=== PATIENT | male | born 1950 | race Caucasian/White ===

== ENCOUNTER 2019-11-22 19:52 | Emergency (ER) | payer MEDICARE, OTHER ==
--- NOTE | 2019-11-22 20:06 | EDM.PDOC ---
ED HPI GENERAL MEDICAL PROBLEM - General Chief Complaint: General Stated Complaint: FELL AND INJURED RIBS Time Seen by Provider: 11/22/19 20:06 - History of Present Illness INITIAL COMMENTS - FREE TEXT/NARRATIVE: 69-year-old male presents the emergency room with rib pain. 3 days ago the patient fell he tripped in a parking lot over a cement parking bumper and landed on the curb with his right chest he turned to avoid hitting his head the patient fell a little over 3 weeks ago bumped his head had a small bleed he is on a novel anticoagulant because of A. fib. He was admitted to the ICU overnight and they watch the bleed it did not get better they told him to stay off the blood thinner and he has an appointment when he gets back home this next week. The patient states he is in A. fib approximately 20% of the time. Treatments [employer]: Reports: Other (see below) Other Treatments [employer]: norco Right Chest Pain Score (Numeric/FACES): 8 - Related Data Allergies Allergy/AdvReac Type Severity Reaction Status Date / Time Penicillins Allergy Severe Rash Verified 11/22/19 20:08 Home Meds: Home Meds Amiodarone [Cordarone] 200 mg PO DAILY 11/22/19 [History] DULoxetine [Cymbalta] 60 mg PO DAILY 11/22/19 [History] Enalapril Maleate [Vasotec] 10 mg PO DAILY 11/22/19 [History] Gabapentin [Neurontin] 800 mg PO TID 11/22/19 [History] Hydrocodone/Acetaminophen [Lena 10-325 Tablet] 10 - 325 mg PO ASDIRECTED 11/22/19 [History] Rivaroxaban [Xarelto] 2.5 mg PO DAILY 11/22/19 [History] atorvaSTATin [Lipitor] 20 mg PO DAILY 11/22/19 [History] metFORMIN [Glucophage] 850 mg PO BID 11/22/19 [History] ED ROS GENERAL - Review of Systems Review Of Systems: See Below Constitutional: Reports: No Symptoms HEENT: Reports: No Symptoms Respiratory: Reports: Pleuritic Chest Pain. Denies: Shortness of Breath, Cough, Sputum Cardiovascular: Reports: No Symptoms Endocrine: Reports: No Symptoms GI/Abdominal: Reports: No Symptoms Musculoskeletal: Reports: No Symptoms Skin: Reports: No Symptoms Neurological: Reports: No Symptoms ED EXAM, GENERAL - Physical Exam Exam: See Below Exam Limited By: No Limitations General Appearance: Alert, No Apparent Distress Head: Atraumatic, Normocephalic Neck: Normal Inspection, Supple, Non-Tender, Full Range of Motion Respiratory/Chest: No Respiratory Distress, Lungs Clear, Normal Breath Sounds, No Accessory Muscle Use, Other (Right sided chest wall discomfort with palpation. No crepitus). No: Chest Non-Tender Cardiovascular: Regular Rate, Rhythm, No Edema, No Murmur GI/Abdominal: Normal Bowel Sounds, Soft, Non-Tender Course - Vital Signs Last Recorded V/S: Last Vital Signs Temp 37.4 C 11/22/19 20:04 Pulse 66 11/22/19 20:04 Resp 20 11/22/19 20:04 BP 144/71 H 11/22/19 20:04 Pulse Ox 96 11/22/19 20:04 - Orders/Labs/Meds Orders: Active Orders 24 hr Category Date Time Status Chest 2V [CR] Stat Exams 11/22/19 20:35 Taken - Re-Assessments/Exams Free Text/Narrative Re-Assessment/Exam: 11/22/19 21:24 X-rays negative for pneumothorax pulmonary contusion. No obvious rib fracture. I will give the patient a few hydrocodone so he can get back home. Departure - Departure Time of Disposition: 21:25 Disposition: Home, Self-Care 01 Clinical Impression: Soft tissue injury of right chest wall - Discharge Information Referrals: PCP,Not In Area [Primary Care Provider] - Forms: ED Department Discharge Additional Instructions: Return to the emergency room with any questions problems or worsening symptoms. Follow-up with your regular healthcare provider as soon as you get home. You have been given some Lena 5/325 take 1 or 2 every 6 hours as needed for pain. This medication can cloud your judgment so it is recommended you wait 12 hours after using this medication before driving or returning to work. Sepsis Event Note (ED) - Focused Exam Vital Signs: Vital Signs Temp Pulse Resp BP Pulse Ox 11/22/19 20:04 37.4 C 66 20 144/71 H 96 - My Orders Last 24 Hours: My Active Orders 11/22/19 20:35 Chest 2V [CR] Stat - Assessment/Plan Last 24 Hours: My Active Orders 11/22/19 20:35 Chest 2V [CR] Stat
--- NOTE | 2019-11-23 13:36 | CR ---
Chest: 2 views of the chest were obtained. Comparison: No prior chest imaging is available. Several old healed right upper rib fractures are seen. No definite acute fracture is appreciated within the ribs. Heart size at the upper limits of normal. Lungs show no acute parenchymal change. Impression: 1. Several old healed right-sided rib fractures. 2. No definite acute rib fracture is seen. Nondisplaced fracture could easily be missed. 3. Nothing acute is otherwise appreciated on 2 view chest x-ray. Diagnostic code #2 This report was dictated in MDT
== END 2019-11-22 21:39 | disposition home or self-care (01) ==
LOC: JD.ED 19:52
DX: S29.009A Unspecified injury of muscle and tendon of unspecified wall of thorax, initial encounter (principal); Z88.0 Allergy status to penicillin; W01.0XXA Fall on same level from slipping, tripping and stumbling without subsequent striking against object, initial encounter
CPT/HCPCS: 71046; 71046-26; 99283; 99283-25